=== PATIENT | female | born 1975 | race African-American/Black ===

== ENCOUNTER 2017-03-05 09:10 | Emergency (ER) | payer MEDICAID ==
[~2017-03-05] VITALS: Ht 162.6 cm; Wt 90.0 kg
[2017-03-05 09:12] VITALS: BP 154/78; PULSE 94; RESP 20; TEMP 97.9; O2SAT 100
[2017-03-05] MEDS ORDERED: SODIUM CHLOR 0.9% 1000 ML INJ 1,000 ML IV SCH (10:04)
[2017-03-05] MEDS ORDERED: SODIUM CHLORIDE 0.9% FLUSH 10 ML FLUSH IV FLUSH PRN (10:15)
[2017-03-05] MEDS ORDERED: ONDANSETRON HCL 4 MG/2 ML VIAL IVP ONE (10:15)
--- NOTE | 2017-03-05 10:23 | PD ---
HPI Chief Complaint: Abdominal Pain Time Seen by Provider: 09:40 Travel History International Travel<30 days: No Contact w/Intl Traveler<30days: No Traveled to known affect area: No History of Present Illness HPI 41-year-old woman presents emergency Department with nondescript lower abdominal pain and bloating. She states symptoms started over the past several days. They seem to be worse at night. She drinks soda one point it made it worse as well. Is no other clearly aggravating or alleviating factors. She otherwise has been feeling generally well and healthy. Appetite been a little bit down. No nausea vomiting. No change in bowel movements. No urinary symptoms. No vaginal discharge or vaginal bleeding. Only previous abdominal surgery was for removal of left ovary last year due to a large ovarian cyst. Last initial period was January 26. History Past Medical History Medical History: Denies Significant Hx LMP: January 26 Social History Alcohol Use: Yes (sometimes) Tobacco Use: No Allergies-Medications (Allergen,Severity, Reaction): Coded Allergies: No Known Allergies (Unverified , 03/05/17) Reported Meds & Prescriptions Reported Meds & Active Scripts Active No Active Prescriptions or Reported Medications Review of Systems Except as stated in HPI: all other systems reviewed are Neg Physical Exam Narrative GENERAL: Well-appearing 41-year-old woman, no acute distress. SKIN: Focused skin assessment warm/dry. HEAD: Atraumatic. Normocephalic. CARDIOVASCULAR: Regular rate and rhythm. No murmur appreciated. RESPIRATORY: No accessory muscle use. Clear to auscultation. Breath sounds equal bilaterally. GASTROINTESTINAL: Normal contour and appearance. Abdomen is soft. Minimal right sided tenderness, upper and lower. No rebound or guarding. Negative James's. MUSCULOSKELETAL: No obvious deformities. No clubbing. No cyanosis. No edema. NEUROLOGICAL: Awake and alert. No obvious cranial nerve deficits. Motor grossly within normal limits. Normal speech. PSYCHIATRIC: Appropriate mood and affect; insight and judgment normal. Data Data Last Documented VS Vital Signs Date Time Temp Pulse Resp B/P Pulse Ox O2 Delivery O2 Flow Rate FiO2 03/05/17 09:12 97.9 94 20 154/78 100 Room Air Orders Complete Blood Count With Diff (03/05/17 10:04) Comprehensive Metabolic Panel (03/05/17 10:04) Lipase (03/05/17 10:04) Urinalysis - C+S If Indicated (03/05/17 10:04) Iv Access Insert/Monitor (03/05/17 10:04) NPO (03/05/17 10:04) Ondansetron Inj (Zofran Inj) (03/05/17 10:15) Sodium Chlor 0.9% 1000 Ml Inj (Ns 1000 M (03/05/17 10:04) Sodium Chloride 0.9% Flush (Ns Flush) (03/05/17 10:15) Ed Urine Pregnancytest Poc (03/05/17 10:04) Ed Poc Ultrasound (03/05/17 10:04) Beta Hcg (Quant/Titer) (03/05/17 10:19) Ed Poc Ultrasound (03/05/17 ) Labs Laboratory Tests Test 03/05/17 03/05/17 10:15 10:25 Urine Color YELLOW Urine Turbidity HAZY Urine pH 5.5 Urine Specific [place] 1.017 Urine Protein NEG mg/dL Urine Glucose (UA) NEG mg/dL Urine Ketones NEG mg/dL Urine Occult Blood NEG Urine Nitrite NEG Urine Bilirubin NEG Urine Urobilinogen LESS THAN 2.0 MG/DL Urine Leukocyte Esterase TRACE Urine RBC 1 /hpf Urine WBC 5 /hpf Urine Squamous Epithelial 5 /hpf Cells Urine Bacteria OCC /hpf Urine Hyaline Casts 1 /lpf Urine Mucus FEW /lpf Microscopic Urinalysis Comment CULT NOT INDICATED White Blood Count 7.6 TH/MM3 Red Blood Count 4.88 MIL/MM3 Hemoglobin 12.7 GM/DL Hematocrit 38.9 % Mean Corpuscular Volume 79.7 FL Mean Corpuscular Hemoglobin 26.1 PG Mean Corpuscular Hemoglobin 32.7 % Concent Red Cell Distribution Width 15.6 % Platelet Count 349 TH/MM3 Mean Platelet Volume 8.8 FL Neutrophils (%) (Auto) 61.0 % Lymphocytes (%) (Auto) 29.3 % Monocytes (%) (Auto) 6.9 % Eosinophils (%) (Auto) 1.9 % Basophils (%) (Auto) 0.9 % Neutrophils # (Auto) 4.6 TH/MM3 Lymphocytes # (Auto) 2.2 TH/MM3 Monocytes # (Auto) 0.5 TH/MM3 Eosinophils # (Auto) 0.1 TH/MM3 Basophils # (Auto) 0.1 TH/MM3 CBC Comment DIFF FINAL Differential Comment Sodium Level 136 MEQ/L Potassium Level 4.3 MEQ/L Chloride Level 106 MEQ/L Carbon Dioxide Level 21.4 MEQ/L Anion Gap 9 MEQ/L Blood Urea Nitrogen 8 MG/DL Creatinine 0.74 MG/DL Estimat Glomerular Filtration 106 ML/MIN Rate Random Glucose 80 MG/DL Calcium Level 9.7 MG/DL Total Bilirubin 0.6 MG/DL Aspartate Amino Transf 26 U/L (AST/SGOT) Alanine Aminotransferase 27 U/L (ALT/SGPT) Alkaline Phosphatase 82 U/L Total Protein 8.5 GM/DL Albumin 3.9 GM/DL Lipase 177 U/L Human Chorionic Gonadotropin, 5890 MIU/ML Quant MDM Medical Decision Making Medical Screen Exam Complete: Yes Emergency Medical Condition: Yes Interpretation(s) LABS: CBC is unremarkable. CMP is generally unremarkable. HCG is 5890 Lipase is normal UA is unremarkable Differential Diagnosis Appendicitis, cholecystitis, , pancreatitis, colitis, gastritis, other Narrative Course Medical decision making INITIAL: 41-year-old woman presents to the emergency department with nonspecific abdominal pain, more mid, more on the right, without associated symptoms. She looks well. She is late on her menstrual cycle. Clinic or was actually positive. We'll check labs, quantitative hCG, UA, reassess. Point of care ultrasound was performed to evaluate the gallbladder. I don't see any gallstones, pericholecystic fluid, or gallbladder wall thickening. FINAL: Patient . Only mild symptoms. Pelvic ultrasound performed. Cannot confirm IUP. Discussed this with the patient. If she has any worsening pain, sexually follow-up in the emergency department for further evaluation for ectopic. As's, she has only mild and intermittent discomfort that is likely due to itself. Recommend outpatient follow-up. Procedures Procedure Narrative Point of care ultrasound: Focus transabdominal ultrasounds perform immediate the bedside to evaluate for possibility of cholecystitis. Gallbladder was identified. There is no gallstones, gallbladder wall thickening, or pericholecystic fluid. Common bile duct was not clearly identified. Point of care ultrasound: Focused abdominal ultrasounds performed by me at the bedside to evaluate for possible . Probable gestational sac was seen in the uterus but no definitive confirmation of IUP can be established given no yolk sac or pole was seen. Diagnosis Primary Impression: Additional Instructions: Follow-up with your primary doctor in the next 2-4 days. Return to the emergency department for any new or worsening symptoms. Scripts No Active Prescriptions or Reported Meds Disposition: 01 DISCHARGE HOME Condition: Stable Edouard Forrest MD Mar 05, 2017 10:23
[2017-03-05 10:46] LABS: AUTOMATED NEUTROPHIL # 4.6 TH/MM3 (1.8-7.7); BASOPHIL # 0.1 TH/MM3 (0-0.2); BASOPHIL % 0.9 % (0.0-2.0); EOSINOPHIL # 0.1 TH/MM3 (0-0.4); EOSINOPHIL % 1.9 % (0.0-4.0); HEMATOCRIT 38.9 % (35.0-46.0); HEMO FLAGS DIFF FINAL; LYMPH % 29.3 % (9.0-44.0); LYMPHOCYTE # 2.2 TH/MM3 (1.0-4.8); MEAN CELL VOLUME 79.7 FL (80.0-100.0); MEAN CORPUSCULAR HEMOGLOBIN 26.1 PG (27.0-34.0); MEAN CORPUSCULAR HGB CONC 32.7 % (32.0-36.0); MONO % 6.9 % (0.0-8.0); PLATELET COUNT 349 TH/MM3 (150-450); RED BLOOD COUNT 4.88 MIL/MM3 (4.00-5.30); RED CELL DISTRIBUTION WIDTH 15.6 % (11.6-17.2); WHITE BLOOD COUNT 7.6 TH/MM3 (4.0-11.0)
[2017-03-05 11:03] LABS: BACTERIA, URINE OCC /hpf; BLOOD, URINE NEG (NEG); COMMENT (UR) CULT NOT INDICATED; CULTURE IF INDICATED CULT NOT INDICATED; GLUCOSE,URINE NEG (NEG); HYALINE CAST, URINE 1 /lpf (RARE); KETONE, URINE NEG (NEG); MUCUS URINE FEW /lpf (OCC); NITRITE,URINE NEG (NEG); PH, URINE 5.5 (5.0-8.5); SQUAMOUS EPITHELIAL CELL URINE 5 /hpf (0-5); URINE COLOR YELLOW (YELLW/STRAW)
[2017-03-05 11:09] LABS: ALKALINE PHOSPHATASE 82 U/L (45-117); TOTAL BILIRUBIN ADULT 0.6 MG/DL (0.2-1.0)
[2017-03-05 11:24] LABS: BETA HCG QUANT 5890 MIU/ML (0-5)
[2017-03-05 11:38] LABS: ALT (GPT) 27 U/L (10-53); ANION GAP 9 MEQ/L (5-15); AST (GOT) 26 U/L (15-37); BICARBONATE 21.4 MEQ/L (21.0-32.0); BLOOD UREA NITROGEN 8 MG/DL (7-18); CHLORIDE 106 MEQ/L (98-107); GLOMERULAR FILTRATION RATE 106 ML/MIN (>89); SODIUM (NA) 136 MEQ/L (136-145)
[2017-03-05 11:39] LABS: POTASSIUM 4.3 MEQ/L (3.5-5.1)
[2017-03-05] MEDS ORDERED: DOCO200C PO (12:49)
== END 2017-03-05 12:56 | disposition home or self-care (01) ==
LOC: NEPD 09:10
DX: R10.9 Unspecified abdominal pain (principal); R14.0 Abdominal distension (gaseous); Z32.01 Encounter for pregnancy test, result positive; Z3A.00 Weeks of gestation of pregnancy not specified
CPT/HCPCS: 80053; 81001; 83690; 84702; 84703; 85025; 96374; 99284; J2405; J7030

== ENCOUNTER 2017-03-20 08:51 | Emergency (ER) | payer OTHER ==
[~2017-03-20] VITALS: Ht 167.6 cm; Wt 100.0 kg
[~2017-03-20 08:51] MED LIST: DOCO200C PO
[2017-03-20 08:52] VITALS: BP 153/89; PULSE 82; RESP 20; TEMP 97.9; O2SAT 100
[2017-03-20] MEDS ORDERED: PREN1TAB63 (09:06)
[2017-03-20] MEDS ORDERED: HYDRO.5%T TOPICAL (09:18)
[2017-03-20] MEDS ORDERED: PRENTAB81 PO (09:18)
--- NOTE | 2017-03-20 09:18 | PD ---
HPI Chief Complaint: Pain: Acute or Chronic Time Seen by Provider: 09:15 Travel History International Travel<30 days: No Contact w/Intl Traveler<30days: No Traveled to known affect area: No History of Present Illness HPI Patient is a 41-year-old female who is a partially 5 weeks gestational age presents with right lower extremity pain and swelling. Patient states that she noticed a lump just anterior and medial to the left knee. She states she's been treating this with vinegar. She states that this caused some skin irritation or skin to open up. She denies a history of stasis denies a history of blood clots. Denies any history of shortness of breath abdominal pain nausea vomiting diarrhea vaginal bleeding vaginal discharge loss of fluid. PFSH Past Medical History ?: LMP: 01/26/17 Past Surgical History Gynecologic Surgery: Yes (removed L ovary, cyst) Social History Alcohol Use: No ( ) Tobacco Use: No Substance Use: No Allergies-Medications (Allergen,Severity, Reaction): Coded Allergies: No Known Allergies (Unverified , 03/05/17) Reported Meds & Prescriptions Reported Meds & Active Scripts Active Hydrocortisone Topical (Hydrocortisone) 0.5% Cream 1 Applic TOPICAL BID PRN Apply to affected area(s) Pnv Folic Acid + Iron Mul 27-1 mg ( Vit W/ Ferrous Fumara) 1 Tab Tab 1 Tab PO DAILY Dha (Docosahexaenoic Acid) 200 Mg Cap 1 Tab PO DAILY 30 Days Review of Systems Except as stated in HPI: all other systems reviewed are Neg Physical Exam Narrative GENERAL: Well-nourished, well-developed patient. stress SKIN: Focused skin assessment warm/dry. HEAD: Normocephalic. EYES: No scleral icterus. No injection or drainage. NECK: Supple, trachea midline. No JVD or lymphadenopathy. CARDIOVASCULAR: Regular rate and rhythm without murmurs, gallops, or rubs. RESPIRATORY: Breath sounds equal bilaterally. No accessory muscle use. GASTROINTESTINAL: Abdomen soft, non-tender, nondistended. MUSCULOSKELETAL: No cyanosis, or edema. Right lower extremity: Patient has really minimal amount of swelling and a 2 x 2 centimeter area over the right medial tibia just distal to the knee. The compartment's are all soft. No cordlike structure. There is no swelling of the calf femur ankle or foot. There is no fluctuant area in the overlying skin is normal except for a quarter centimeter abrasion which is already scabbed. BACK: Nontender without obvious deformity. No CVA tenderness. Data Data Last Documented VS Vital Signs Date Time Temp Pulse Resp B/P Pulse Ox O2 Delivery O2 Flow Rate FiO2 03/20/17 08:52 97.9 82 20 153/89 100 Room Air MDM Medical Decision Making Medical Screen Exam Complete: Yes Emergency Medical Condition: Yes Differential Diagnosis Nonspecific swelling, bug bite, abscess less likely, DVT highly unlikely. Narrative Course Patient roomed in the emergency department, she has his nonspecific area of swelling over the right medial tibia. She has not reported a history of trauma though this could be consistent with a traumatic hematoma which is very small. I think the clinical likelihood of DVT is very unlikely. Discussed with the patient's symptom management and management recommend follow-up the primary care physician. We'll try hydrocortisone for her symptoms. Diagnosis Primary Impression: Leg swelling Med/Other Pt SpecificInfo: Prescription(s) given Scripts Hydrocortisone Topical 0.5% Cream1 Applic TOPICAL BID PRN (ITCHING) #30 GM Ref 0 Apply to affected area(s) Prov:Bill Keys MD 03/20/17 Vit W/ Ferrous Fumara (Pnv Folic Acid + Iron Mul 27-1 mg)1 Tab Tab1 Tab PO DAILY #30 Ref 9 Prov:Bill Keys MD 03/20/17 Disposition: 01 DISCHARGE HOME Condition: Stable Bill Keys MD Mar 20, 2017 09:18
== END 2017-03-20 09:43 | disposition home or self-care (01) ==
LOC: NEPD 08:51
DX: O99.89 Other specified diseases and conditions complicating pregnancy, childbirth and the puerperium (principal); R22.41 Localized swelling, mass and lump, right lower limb; M79.604 Pain in right leg; R23.8 Other skin changes; Z3A.01 Less than 8 weeks gestation of pregnancy
CPT/HCPCS: 99283

== ENCOUNTER 2017-04-02 19:55 | Emergency (ER) | payer OTHER ==
[~2017-04-02] VITALS: Ht 167.6 cm; Wt 100.0 kg
[~2017-04-02 19:55] MED LIST changes: +HYDRO.5%T TOPICAL; +PRENTAB81 PO
[2017-04-02 19:56] VITALS: BP 186/93; PULSE 81; RESP 16; TEMP 98.6; O2SAT 99
[2017-04-02] MEDS ORDERED: CETI10 PO (22:24)
--- NOTE | 2017-04-02 22:31 | PD ---
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 Patient is 3 para 1 AB 1. Last menstruation period January 26, 2017. Patient states that her blood type is possible B+. Patient started having vaginal spotting since yesterday. Patient started having low abdominal pain pelvic pain and low back pain since this evening. Patient denies any headache. Patient denies any chest pain or shortness of breath. Patient denies any dysuria or frequency. Patient denies any fever chills. On a scale of 1-10 the pain is a 9. Patient states that she was seen by local OB clinic and had blood tests done however has not had exam or ultrasound done. PFSH Past Medical History Medical History: Denies Significant Hx Tetanus Vaccination: Unknown Influenza Vaccination: No ?: Ovarian Cysts: Yes Past Surgical History Gynecologic Surgery: Yes (removed L ovary, cyst) Social History Alcohol Use: No ( ) Tobacco Use: No Substance Use: No Allergies-Medications (Allergen,Severity, Reaction): Coded Allergies: No Known Allergies (Unverified , 04/02/17) Reported Meds & Prescriptions Reported Meds & Active Scripts Active Pnv Folic Acid + Iron Mul 27-1 mg ( Vit W/ Ferrous Fumara) 1 Tab Tab 1 Tab PO DAILY Reported Cetirizine (Cetirizine HCl) 10 Mg Tab 10 Mg PO DAILY PRN Review of Systems General / Constitutional: No: Fever Eyes: No: Visual changes HENT: No: Headaches Cardiovascular: No: Chest Pain or Discomfort Respiratory: No: Shortness of Breath Gastrointestinal: Positive: Abdominal Pain Genitourinary: Positive: Pelvic Pain, Vaginal Bleeding, No: Dysuria Musculoskeletal: No: Pain Skin: No Rash Neurologic: No: Weakness Psychiatric: No: Depression Endocrine: No: Polydipsia Hematologic/Lymphatic: No: Easy Bruising Physical Exam Narrative GENERAL: Well-nourished, well-developed patient. SKIN: Focused skin assessment warm/dry. HEAD: Normocephalic. EYES: No scleral icterus. No injection or drainage. NECK: Supple, trachea midline. No JVD or lymphadenopathy. CARDIOVASCULAR: Regular rate and rhythm without murmurs, gallops, or rubs. RESPIRATORY: Breath sounds equal bilaterally. No accessory muscle use. GASTROINTESTINAL: Abdomen soft, non-tender, nondistended. MUSCULOSKELETAL: No cyanosis, or edema. BACK: Nontender without obvious deformity. No CVA tenderness. 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 No cervical motion tenderness. The cervix long thick and closed. Uterus is enlarged with moderate tenderness on palpation. No adnexal mass or tenderness. Data Data Last Documented VS Vital Signs Date Time Temp Pulse Resp B/P Pulse Ox O2 Delivery O2 Flow Rate FiO2 04/02/17 23:00 70 18 122/75 98 Room Air 04/02/17 19:56 98.6 Orders Beta Hcg (Quant/Titer) (04/02/17 22:14) Complete Blood Count With Diff (04/02/17 22:14) Basic Metabolic Panel (Bmp) (04/02/17 22:14) Complete Rh (04/02/17 22:14) Us Pelvis (Ques Pr/Ect)W Trans (04/02/17 ) Urinalysis - C+S If Indicated (04/02/17 22:14) Iv Access Insert/Monitor (04/02/17 22:14) Labs Laboratory Tests Test 04/02/17 04/02/17 22:30 23:37 White Blood Count 8.8 TH/MM3 Red Blood Count 4.81 MIL/MM3 Hemoglobin 12.9 GM/DL Hematocrit 39.5 % Mean Corpuscular Volume 82.2 FL Mean Corpuscular Hemoglobin 26.8 PG Mean Corpuscular Hemoglobin 32.5 % Concent Red Cell Distribution Width 17.0 % Platelet Count 324 TH/MM3 Mean Platelet Volume 8.7 FL Neutrophils (%) (Auto) 53.7 % Lymphocytes (%) (Auto) 33.6 % Monocytes (%) (Auto) 7.8 % Eosinophils (%) (Auto) 3.9 % Basophils (%) (Auto) 1.0 % Neutrophils # (Auto) 4.7 TH/MM3 Lymphocytes # (Auto) 3.0 TH/MM3 Monocytes # (Auto) 0.7 TH/MM3 Eosinophils # (Auto) 0.3 TH/MM3 Basophils # (Auto) 0.1 TH/MM3 CBC Comment DIFF FINAL Differential Comment Sodium Level 138 MEQ/L Potassium Level 4.3 MEQ/L Chloride Level 106 MEQ/L Carbon Dioxide Level 25.0 MEQ/L Anion Gap 7 MEQ/L Blood Urea Nitrogen 14 MG/DL Creatinine 0.71 MG/DL Estimat Glomerular Filtration 111 ML/MIN Rate Random Glucose 88 MG/DL Calcium Level 9.6 MG/DL Human Chorionic Gonadotropin, 3889 MIU/ML Quant Blood Type B POSITIVE Rho(D) Type POSITIVE Urine Color YELLOW Urine Turbidity HAZY Urine pH 5.5 Urine Specific [place] 1.017 Urine Protein NEG mg/dL Urine Glucose (UA) NEG mg/dL Urine Ketones NEG mg/dL Urine Occult Blood LARGE Urine Nitrite NEG Urine Bilirubin NEG Urine Urobilinogen LESS THAN 2.0 MG/DL Urine Leukocyte Esterase TRACE Urine RBC 2 /hpf Urine WBC 3 /hpf Urine Squamous Epithelial 2 /hpf Cells Urine Amorphous Sediment RARE Urine Bacteria RARE /hpf Urine Mucus FEW /lpf Microscopic Urinalysis Comment CULT NOT INDICATED MDM Medical Decision Making Medical Screen Exam Complete: Yes Emergency Medical Condition: Yes Interpretation(s) 12:03 AM. CBC within normal limit. BMP within normal limit. Beta hCG 3889. UA negative. 12:27 AM. Patient's blood type B+. Last Impressions Pelvis Ultrasound 04/02/17 0000 Signed Impressions: Service Date/Time: March 23:22 - CONCLUSION: 1. No gestational sac is demonstrated. There is complex hyperechoic material in the endometrial cavity. This is suspicious of retained products of conception following most likely a spontaneous given patient's history of bleeding.. Recommend serial beta hCGs to confirm a decreasing beta.. 2. Nonspecific 1 cm cystic structure within the right mid uterus. Chau Boswell MD Differential Diagnosis Differential diagnosis including threatened AB, incomplete AB, completed AB, ectopic . Narrative Course 41-year-old female with vaginal bleeding, abdominal pain and low back pain. Diagnosis Primary Impression: Incomplete Patient Instructions: General Instructions Additional Instructions: Tylenol or ibuprofen for pain. Follow-up with local physician for repeat beta hCG in 3 days. Return if increasing abdominal pelvic pain, excessive bleeding. Med/Other Pt SpecificInfo: No Meds Exist/No RX given Disposition: 01 DISCHARGE HOME Condition: Stable Patrice Rodriguez MD April 02, 2017 22:31
[2017-04-02 22:39] LABS: AUTOMATED NEUTROPHIL # 4.7 TH/MM3 (1.8-7.7); BASOPHIL # 0.1 TH/MM3 (0-0.2); EOSINOPHIL # 0.3 TH/MM3 (0-0.4); EOSINOPHIL % 3.9 % (0.0-4.0); HEMATOCRIT 39.5 % (35.0-46.0); HEMO FLAGS DIFF FINAL; LYMPH % 33.6 % (9.0-44.0); MEAN CELL VOLUME 82.2 FL (80.0-100.0); MEAN CORPUSCULAR HEMOGLOBIN 26.8 PG (27.0-34.0); MEAN CORPUSCULAR HGB CONC 32.5 % (32.0-36.0); MONO % 7.8 % (0.0-8.0); NEUT % 53.7 % (16.0-70.0); PLATELET COUNT 324 TH/MM3 (150-450); RED BLOOD COUNT 4.81 MIL/MM3 (4.00-5.30); WHITE BLOOD COUNT 8.8 TH/MM3 (4.0-11.0)
[2017-04-02 22:59] LABS: POTASSIUM 4.3 MEQ/L (3.5-5.1)
[2017-04-02 23:00] VITALS: BP 122/75; PULSE 70; RESP 18; O2SAT 98
[2017-04-03 00:02] LABS: BACTERIA, URINE RARE /hpf; BLOOD, URINE LARGE (NEG); GLUCOSE,URINE NEG (NEG); KETONE, URINE NEG (NEG); MUCUS URINE FEW /lpf (OCC); NITRITE,URINE NEG (NEG); PH, URINE 5.5 (5.0-8.5); SQUAMOUS EPITHELIAL CELL URINE 2 /hpf (0-5); URINE COLOR YELLOW (YELLW/STRAW)
[2017-04-03 00:03] LABS: COMMENT (UR) CULT NOT INDICATED; CULTURE IF INDICATED CULT NOT INDICATED
--- NOTE | 2017-04-03 00:17 | RADRPT ---
EXAM DATE/TIME: 04/02/2017 23:22 [facility] COMPARISON: No previous studies available for comparison. INDICATIONS : Pelvic pain and bleeding. LAB(S): Beta-hC,889 MEDICAL HISTORY : . Ovarian cysts. SURGICAL HISTORY : Left oophorectomy. ENCOUNTER: Initial ACUITY: 1 day PAIN SCORE: 10/10 LOCATION: Bilateral pelvis MEASUREMENTS: UTERUS: 12.0 x 5.9 x 6.7 cm ENDOMETRIAL STRIPE: >20 mm RIGHT OVARY: 2.7 x 3.6 x 2.2 cm LEFT OVARY: s/p oophorectomy CROWN RUMP LENGTH: Nonvisualized = WKS DAYS FHR: Nonvisualized BPM FINDINGS: UTERUS: The uterus is within normal limits for size. No gestational sac is demonstrated. There is thickening of the endometrial lining appears to be hyperechoic complex material within the endometrial cavity me asuring 2.4 x 3.6 x 2.0 cm. There is a nonspecific cystic structure in the right mid uterus measuring 1 cm. There is a 6 mm nabothian cyst in the cervix. RIGHT OVARY: Ovary contains no mass or significant cystic lesion. LEFT OVARY: Surgically removed MISCELLANEOUS: No free fluid. CONCLUSION: 1. No gestational sac is demonstrated. There is complex hyperechoic material in the endometrial cavit y. This is suspicious of retained products of conception following most likely a spontaneous given patient's history of bleeding.. Recommend serial beta hCGs to confirm a decreasing beta.. 2. Nonspecific 1 cm cystic structure within the right mid uterus. Chau Boswell MD on April 03, 2017 at 0:10 Board Certified Radiologist. This report was verified electronically.
[2017-04-04] MEDS ORDERED: METH-703 PO (04:54)
[2017-04-04] MEDS ORDERED: HYDR-3533 PO (04:54)
== END 2017-04-03 01:20 | disposition home or self-care (01) ==
LOC: NEPC 19:55
DX: O03.4 Incomplete spontaneous abortion without complication (principal); Z3A.00 Weeks of gestation of pregnancy not specified
CPT/HCPCS: 76700; 76817; 80048; 81001; 84702; 85025; 86901

== ENCOUNTER 2017-04-04 03:12 | Emergency (ER) | payer OTHER ==
[~2017-04-04] VITALS: Ht 167.6 cm; Wt 100.0 kg
[~2017-04-04 03:12] MED LIST changes: +CETI10 PO; -DOCO200C PO; -HYDRO.5%T TOPICAL
[2017-04-04 03:15] VITALS: BP 147/86; PULSE 87; RESP 22; TEMP 98; O2SAT 100
--- NOTE | 2017-04-04 03:35 | PD ---
HPI Chief Complaint: Abdominal Pain Time Seen by Provider: 03:29 Travel History International Travel<30 days: No Contact w/Intl Traveler<30days: No Traveled to known affect area: No History of Present Illness HPI This is a 41-year-old female who was seen yesterday and diagnosed with incomplete , presents today with complaints of continued abdominal cramping with no passage of tissue. The patient denies any increased bleeding. She states that she's having more cramps and has not seen anything past from her vagina. Yesterday her beta-hCG was 3880. There are no other complaints time my examination. PFS Past Medical History Medical History: Denies Significant Hx ?: Unknown LMP: 01/26. Ovarian Cysts: Yes Past Surgical History Gynecologic Surgery: Yes (removed L ovary, cyst) Social History Alcohol Use: No ( ) Tobacco Use: No Substance Use: No Allergies-Medications (Allergen,Severity, Reaction): Coded Allergies: No Known Allergies (Unverified , 04/04/17) Reported Meds & Prescriptions Reported Meds & Active Scripts Active Lortab (Hydrocodone-Acetaminophen) 5-325 Mg Tab 1 Tab PO Q4H PRN Methergine (Methylergonovine Maleate) 0.2 Mg Tab 0.2 Mg PO TID Pnv Folic Acid + Iron Mul 27-1 mg ( Vit W/ Ferrous Fumara) 1 Tab Tab 1 Tab PO DAILY Reported Cetirizine (Cetirizine HCl) 10 Mg Tab 10 Mg PO DAILY PRN Review of Systems Except as stated in HPI: all other systems reviewed are Neg HENT: No: Headaches, Lightheadedness Cardiovascular: No: Chest Pain or Discomfort, Palpitations Respiratory: No: Cough, Shortness of Breath Gastrointestinal: Positive: Abdominal Pain (crampy pelvic pain), No: Nausea, Vomiting Genitourinary: Positive: Pelvic Pain (crampy), Vaginal Bleeding (minimal), Other (no passage of tissue from the vagina) Musculoskeletal: No: Weakness, Pain Neurologic: No: Weakness, Dizziness Physical Exam Narrative GENERAL: Well-nourished, well-developed patient. SKIN: Focused skin assessment warm/dry. HEAD: Normocephalic/atraumatic. EYES: No scleral icterus. No injection or drainage. NECK: Supple, trachea midline. No JVD or lymphadenopathy. GASTROINTESTINAL: Abdomen soft, nondistended. She has subjective pelvic cramping. There is no rebound or guarding. MUSCULOSKELETAL: No cyanosis, or edema. BACK: Nontender without obvious deformity. NEUROLOGICAL: Awake and alert. Cranial nerves II through XII intact. Motor grossly within normal limits. Five out of 5 muscle strength in all muscle groups. Normal speech. Data Data Last Documented VS Vital Signs Date Time Temp Pulse Resp B/P Pulse Ox O2 Delivery O2 Flow Rate FiO2 04/04/17 04:00 76 18 114/62 99 04/04/17 03:15 98.0 Room Air Orders Complete Blood Count With Diff (04/04/17 03:30) Beta Hcg (Quant/Titer) (04/04/17 03:30) Labs Laboratory Tests Test 04/04/17 03:50 White Blood Count 10.3 TH/MM3 Red Blood Count 4.69 MIL/MM3 Hemoglobin 12.5 GM/DL Hematocrit 38.6 % Mean Corpuscular Volume 82.2 FL Mean Corpuscular Hemoglobin 26.7 PG Mean Corpuscular Hemoglobin 32.5 % Concent Red Cell Distribution Width 16.5 % Platelet Count 288 TH/MM3 Mean Platelet Volume 8.7 FL Neutrophils (%) (Auto) 64.7 % Lymphocytes (%) (Auto) 25.0 % Monocytes (%) (Auto) 7.0 % Eosinophils (%) (Auto) 2.5 % Basophils (%) (Auto) 0.8 % Neutrophils # (Auto) 6.6 TH/MM3 Lymphocytes # (Auto) 2.6 TH/MM3 Monocytes # (Auto) 0.7 TH/MM3 Eosinophils # (Auto) 0.3 TH/MM3 Basophils # (Auto) 0.1 TH/MM3 CBC Comment DIFF FINAL Differential Comment Human Chorionic Gonadotropin, 2320 MIU/ML Quant [facility] Medical Decision Making Medical Screen Exam Complete: Yes Emergency Medical Condition: Yes Differential Diagnosis Retained products versus complete AB versus missed AB Narrative Course 41-year-old female who has a incomplete AB, who was seen here yesterday. The patient was told that she would likely pass the products and she states she still having cramping however does not passed any tissue. Sound performed yesterday showed debris in the uterus with no pole. Beta hCG at that time was 3800. Today it's decreased at 2200. Her CBC shows a stable white count. We will start her on Methergine 0.2 mg by mouth 3 times a day 2 days. She also be given a prescription for Lortab. She is instructed to return if she does any severe bleeding that does not stop, dizziness, or any other reason the concerns her. She is instructed to return on Thursday for a repeat beta hCG. She does not need program as she is Rh+. Diagnosis Primary Impression: Incomplete Additional Instructions: Return on Thursday for repeat blood test. Med/Other Pt SpecificInfo: Prescription(s) given Scripts Hydrocodone-Acetaminophen (Lortab)5-325 Mg Tab1 Tab PO Q4H PRN (PAIN) #20 TAB Ref 0 Prov:Gary Perez MD 04/04/17 Methylergonovine (Methergine)0.2 Mg Tab0.2 Mg PO TID #6 TAB Ref 0 Prov:Gary Perez MD 04/04/17 Disposition: 01 DISCHARGE HOME Condition: Stable Gary Perez MD April 04, 2017 03:35
[2017-04-04 04:00] VITALS: BP 114/62; PULSE 76; RESP 18; O2SAT 99
[2017-04-04 04:05] LABS: AUTOMATED NEUTROPHIL # 6.6 TH/MM3 (1.8-7.7); BASOPHIL # 0.1 TH/MM3 (0-0.2); BASOPHIL % 0.8 % (0.0-2.0); EOSINOPHIL # 0.3 TH/MM3 (0-0.4); EOSINOPHIL % 2.5 % (0.0-4.0); HEMATOCRIT 38.6 % (35.0-46.0); HEMO FLAGS DIFF FINAL; LYMPHOCYTE # 2.6 TH/MM3 (1.0-4.8); MEAN CELL VOLUME 82.2 FL (80.0-100.0); MEAN CORPUSCULAR HEMOGLOBIN 26.7 PG (27.0-34.0); MEAN CORPUSCULAR HGB CONC 32.5 % (32.0-36.0); NEUT % 64.7 % (16.0-70.0); PLATELET COUNT 288 TH/MM3 (150-450); RED BLOOD COUNT 4.69 MIL/MM3 (4.00-5.30); RED CELL DISTRIBUTION WIDTH 16.5 % (11.6-17.2); WHITE BLOOD COUNT 10.3 TH/MM3 (4.0-11.0)
[2017-04-04 04:40] LABS: BETA HCG QUANT 2320 MIU/ML (0-5)
[2017-04-04] MEDS ORDERED: HYDR-3533 PO (04:54)
[2017-04-04] MEDS ORDERED: METH-703 PO (04:54)
== END 2017-04-04 05:15 | disposition home or self-care (01) ==
LOC: NEPE 03:12
DX: O03.4 Incomplete spontaneous abortion without complication (principal); R10.2 Pelvic and perineal pain
CPT/HCPCS: 84702; 85025; 99283

== ENCOUNTER 2018-03-09 16:52 | Inpatient (IN) | payer SELFPAY ==
[~2018-03-09] VITALS: Ht 157.5 cm; Wt 114.0 kg
[2018-03-09] VITALS (45 sets, daily range): BP systolic 128–166; BP diastolic 65–106; PULSE 94–116; RESP 18; TEMP 97.6–98.5
[~2018-03-09 16:52] MED LIST changes: +HYDR-3533 PO; +METH-703 PO
--- NOTE | 2018-03-09 17:21 | PD ---
HPI Chief Complaint Elevated outpt BP Date Seen: Mar 09, 2018 Time Seen: 17:19 Travel History International Travel<30 Days: No Contact w/Intl Traveler<30Days: No History of Present Illness HPI Patient is a 42 year old at 39 and 5/7 weeks, patient of Glory Rosas, who presents with elevated BP in office today of 160/100, 03/11/2018. She denies leakage of fluid, vaginal bleeding, and contractions. She feels baby moving regularly. She has mild CABRALES. She denies N/V/D/fever/sick contacts/SOB/ calf pain/dizziness/seeing spots. History Past Medical History Medical History: Denies Significant Hx Obstetric History Obstetric History Two miscarriages Full term Past Surgical History Surgical History: No Previous Surgery Family History Family History: Negative Social History Alcohol Use: No Tobacco Use: No Substance Abuse: No Allergies-Medications (Allergen,Severity, Reaction): Coded Allergies: No Known Allergies (Unverified , 04/04/17) Home Meds Active Scripts Hydrocodone-Acetaminophen (Lortab) 5-325 Mg Tab, 1 TAB PO Q4H Y for PAIN, #20 TAB 0 Refills Prov:Gary Perez MD 04/04/17 Methylergonovine (Methergine) 0.2 Mg Tab, 0.2 MG PO TID for Prevents Bleeding, # 6 TAB 0 Refills Prov:Gary Perez MD 04/04/17 Vit W/ Ferrous Fumara (Pnv Folic Acid + Iron Mul 27-1 mg) 1 Tab Tab, 1 TAB PO DAILY, #30 9 Refills Prov:Bill Keys MD 03/20/17 Reported Medications Cetirizine (Cetirizine) 10 Mg Tab, 10 MG PO DAILY Y for ALLERGIES, TAB 0 Refills 04/02/17 Review of Systems General / Constitutional: No: Fever, Chills Eyes: No: Diploplia, Blurred Vision HENT: No: Headaches, Vertigo Cardiovascular: No: Irregular Rhythm, Chest Pain or Discomfort Respiratory: No: Cough, Short of Breath Gastrointestinal: No: Nausea, Vomiting, Diarrhea, Abdominal Pain Genitourinary: No: Urgency, Dysuria Musculoskeletal: No: Limited ROM, Weakness, Edema Skin: No Dryness Neurologic: No: Weakness, Syncope Psychiatric: No: Anxiety, Depression Physical Exam Narrative GENERAL: Well-nourished, well-developed patient. SKIN: Warm and dry. HEAD: Normocephalic and atraumatic. EYES: No scleral icterus. No injection or drainage. ENT: No nasal drainage noted. Mucous membranes pink. Airway patent. NECK: Supple, trachea midline. No JVD. CARDIOVASCULAR: Regular rate and rhythm without murmurs, gallops, or rubs. RESPIRATORY: Breath sounds equal bilaterally. No accessory muscle use. ABDOMEN/GI: Abdomen soft, non-tender, bowel sounds present, no rebound, no guarding. Gravid uterus GENITOURINARY: deferred Uterine Contractions: absent FHT's: Category: 1 Baseline: 150 Reactive: 180 Variability: mod Decels: absent EXTREMITIES: No cyanosis or edema. BACK: Nontender without obvious deformity. No CVA tenderness. NEUROLOGICAL: Awake and alert. Motor and sensory grossly within normal limits. Five out of 5 muscle strength in all muscle groups. Normal speech. Data Data Vital Signs Reviewed: Yes Orders Orders Vital Signs (Adult) .ON ADMISSION (03/09/18 17:18) ^ Labor Status (03/09/18 17:18) Urinalysis - C+S If Indicated (03/09/18 17:18) ^ Non Stress Test (03/09/18 17:18) ^ Hydration (03/09/18 17:18) Cbc No Diff, Includes Plts (03/09/18 17:18) Comprehensive Metabolic Panel (03/09/18 17:18) Uric Acid (03/09/18 17:18) Protein Creat Ratio, Random Ur (03/09/18 17:18) MDM Narrative Course / MDM BP 166/105 on arrival. PE benign. Given term will admit for IOL. Intrauterine : Category 1 tracing Expect vaginal delivery Cervix to be assess Intact membranes Will obtain CBC, T&S, UA, UDS per protocol Monitor heart tones Routine care GBS to be assessed Hypertension in Blood pressures elevated to 160/100s Rule out preeclampsia CBC, CMP, urinalysis, uric acid pending, urine protein/creatinine Procardia 20 mg by mouth Start magnesium if indicated DW Dr. Nubia Macias,Tracey Winters MD R2 Mar 09, 2018 17:21
[2018-03-09] MEDS ORDERED: LACTATED RINGER'S 1000 ML INJ 1,000 ML IV PRN (17:34)
[2018-03-09] MEDS: LACTATED RINGER'S 1000 ML INJ 1,000 ML IV SCH ×2 (17:34→20:41)
[2018-03-09] MEDS ORDERED: LIDOCAINE HCL 1% 50 ML VIAL I-DERMAL PRN (17:45)
[2018-03-09] MEDS ORDERED: LIDOCAINE HCL 1% 50 ML VIAL INFIL PRN (17:45)
[2018-03-09] MEDS ORDERED: SODIUM CHLORID 0.9% 500 ML INJ 500 ML IV PRN (17:45)
[2018-03-09] MEDS: OXYTOCIN 30 UNITS-500ML PREMIX 500 ML IV ONE (17:45)
[2018-03-09] MEDS ORDERED: CITRIC ACID-SODIUM CITRATE LIQ 30 ML UDC PO SCH (17:45)
[2018-03-09] MEDS ORDERED: MINERAL OIL 10 ML VIAL TOPICAL PRN (17:45)
[2018-03-09] MEDS ORDERED: ONDANSETRON HCL 4 MG/2 ML VIAL IV PUSH PRN (17:45)
[2018-03-09] MEDS ORDERED: SODIUM CHLOR 0.9% 1000 ML INJ 1,000 ML IV PRN (17:54)
[2018-03-09 18:44] LABS: HEMATOCRIT 35.6 % (35.0-46.0); HEMOGLOBIN 11.6 GM/DL (11.6-15.3); MEAN CELL VOLUME 78.6 FL (80.0-100.0); MEAN CORPUSCULAR HEMOGLOBIN 25.7 PG (27.0-34.0); MEAN CORPUSCULAR HGB CONC 32.8 % (32.0-36.0); MEAN PLATELET VOLUME 9.5 FL (7.0-11.0); PLATELET COUNT 308 TH/MM3 (150-450); RED BLOOD COUNT 4.52 MIL/MM3 (4.00-5.30); RED CELL DISTRIBUTION WIDTH 16.4 % (11.6-17.2); WHITE BLOOD COUNT 8.3 TH/MM3 (4.0-11.0)
[2018-03-09] MEDS ORDERED: DINOPROSTONE 10 MG VAG INSERT VAGINAL ONE (18:45)
[2018-03-09 19:06] LABS: ALBUMIN 2.9 GM/DL (3.4-5.0); AST (GOT) 16 U/L (15-37); BICARBONATE 23.1 MEQ/L (21.0-32.0); BLOOD UREA NITROGEN 5 MG/DL (7-18); CALCIUM 9.8 MG/DL (8.5-10.1); CHLORIDE 108 MEQ/L (98-107); GLOMERULAR FILTRATION RATE 134 ML/MIN (>89); GLUCOSE,RANDOM 72 MG/DL (74-106); SODIUM (NA) 140 MEQ/L (136-145)
[2018-03-09 19:07] LABS: ALT (GPT) 16 U/L (10-53)
[2018-03-09 19:09] LABS: ALKALINE PHOSPHATASE 232 U/L (45-117); TOTAL BILIRUBIN ADULT 0.5 MG/DL (0.2-1.0)
[2018-03-09 19:24] LABS: BACTERIA, URINE OCC /hpf; BILIRUBIN, URINE NEG (NEG); BLOOD, URINE NEG (NEG); GLUCOSE,URINE NEG (NEG); KETONE, URINE NEG (NEG); MUCUS URINE FEW /lpf (OCC); NITRITE,URINE NEG (NEG); PH, URINE 6.5 (5.0-8.5); SQUAMOUS EPITHELIAL CELL URINE 31 /hpf (0-5); URINE COLOR YELLOW (YELLW/STRAW); URINE LEUKOCYTE ESTERASE LARGE (NEG)
[2018-03-09] MEDS ORDERED: CALCIUM GLUCONATE 10% 1 GM/10 ML VIAL IV PUSH PRN (19:30)
[2018-03-09] MEDS ORDERED: MAGNESIUM SULFATE 4 GM PREMIX 100 ML IV ONE (19:30)
[2018-03-09] MEDS ORDERED: LABETALOL HCL 100 MG/20 ML VIAL IV PUSH PRN (19:30)
[2018-03-09] MEDS ORDERED: SODIUM CHLORIDE 0.9% FLUSH 10 ML FLUSH IV FLUSH PRN (19:30)
--- NOTE | 2018-03-09 19:37 | HHI.HP ---
History & Physical H&P HPI Chief Complaint Elevated outpt BP Date Seen: Mar 09, 2018 Time Seen: 17:19 Travel History International Travel<30 Days: No Contact w/Intl Traveler<30Days: No History of Present Illness HPI Patient is a 42 year old at 39 and 5/7 weeks, patient of Glory Rosas, who presents with elevated BP in office today of 160/100, 03/11/2018. She denies leakage of fluid, vaginal bleeding, and contractions. She feels baby moving regularly. She has mild CABRALES. She denies N/V/D/fever/sick contacts/SOB/ calf pain/dizziness/seeing spots. History (Limited) History Past Medical History Medical History: Denies Significant Hx Obstetric History Obstetric History Two miscarriages Full term Past Surgical History Surgical History: No Previous Surgery Family History Family History: Negative Social History Alcohol Use: No Tobacco Use: No Substance Abuse: No Allergies-Medications Allergies-Medications (Allergen,Severity, Reaction): Coded Allergies: No Known Allergies (Unverified , 04/04/17) Home Meds Active Scripts Hydrocodone-Acetaminophen (Lortab) 5-325 Mg Tab, 1 TAB PO Q4H Y for PAIN, #20 TAB 0 Refills Prov:Gary ePrez MD 04/04/17 Methylergonovine (Methergine) 0.2 Mg Tab, 0.2 MG PO TID for Prevents Bleeding, # 6 TAB 0 Refills Prov:Gary Perez MD 04/04/17 Vit W/ Ferrous Fumara (Pnv Folic Acid + Iron Mul 27-1 mg) 1 Tab Tab, 1 TAB PO DAILY, #30 9 Refills Prov:Bill Keys MD 03/20/17 Reported Medications Cetirizine (Cetirizine) 10 Mg Tab, 10 MG PO DAILY Y for ALLERGIES, TAB 0 Refills 04/02/17 ROS Review of Systems General / Constitutional: No: Fever, Chills Eyes: No: Diploplia, Blurred Vision HENT: No: Headaches, Vertigo Cardiovascular: No: Irregular Rhythm, Chest Pain or Discomfort Respiratory: No: Cough, Short of Breath Gastrointestinal: No: Nausea, Vomiting, Diarrhea, Abdominal Pain Genitourinary: No: Urgency, Dysuria Musculoskeletal: No: Limited ROM, Weakness, Edema Skin: No Dryness Neurologic: No: Weakness, Syncope Psychiatric: No: Anxiety, Depression Physical Exam Physical Exam Narrative GENERAL: Well-nourished, well-developed patient. SKIN: Warm and dry. HEAD: Normocephalic and atraumatic. EYES: No scleral icterus. No injection or drainage. ENT: No nasal drainage noted. Mucous membranes pink. Airway patent. NECK: Supple, trachea midline. No JVD. CARDIOVASCULAR: Regular rate and rhythm without murmurs, gallops, or rubs. RESPIRATORY: Breath sounds equal bilaterally. No accessory muscle use. ABDOMEN/GI: Abdomen soft, non-tender, bowel sounds present, no rebound, no guarding. Gravid uterus GENITOURINARY: deferred Uterine Contractions: absent FHT's: Category: 1 Baseline: 150 Reactive: 180 Variability: mod Decels: absent EXTREMITIES: No cyanosis or edema. BACK: Nontender without obvious deformity. No CVA tenderness. NEUROLOGICAL: Awake and alert. Motor and sensory grossly within normal limits. Five out of 5 muscle strength in all muscle groups. Normal speech. Data Data Data Vital Signs Reviewed: Yes Orders Orders Vital Signs (Adult) .ON ADMISSION (03/09/18 17:18) ^ Labor Status (03/09/18 17:18) Urinalysis - C+S If Indicated (03/09/18 17:18) ^ Non Stress Test (03/09/18 17:18) ^ Hydration (03/09/18 17:18) Cbc No Diff, Includes Plts (03/09/18 17:18) Comprehensive Metabolic Panel (03/09/18 17:18) Uric Acid (03/09/18 17:18) Protein Creat Ratio, Random Ur (03/09/18 17:18) [facility] Narrative Course / [facility] BP 166/105 on arrival. PE benign. Given term will admit for IOL. Intrauterine : Category 1 tracing Expect vaginal delivery Cervix to be assess Intact membranes Will obtain CBC, T&S, UA, UDS per protocol Monitor heart tones Routine care GBS to be assessed Hypertension in Blood pressures elevated to 160/100s Rule out preeclampsia CBC, CMP, urinalysis, uric acid pending, urine protein/creatinine Procardia 20 mg by mouth Start magnesium if indicated DW Dr. Delacruz pt. spot protein/cr ratio is elevated. pt. w/ preeclamp. will start magnesium sulfate and monitor closely. Nasir Delacruz Jr., MD Mar 09, 2018 19:37
[2018-03-09] MEDS: SODIUM CHLORIDE 0.9% FLUSH 10 ML FLUSH IV FLUSH SCH (21:00)
[2018-03-09] MEDS: MAGNESIUM SULFATE 40 GM PREMIX 1,000 ML IV SCH (21:20)
[2018-03-10] VITALS (43 sets, daily range): BP systolic 113–146; BP diastolic 59–90; PULSE 81–122; RESP 15–18; TEMP 97.6–97.9; O2SAT 97–99
[2018-03-10] MEDS: LACTATED RINGER'S 1000 ML INJ 1,000 ML IV SCH ×2 (01:34→04:07)
--- NOTE | 2018-03-10 02:59 | PD.LABORPN ---
Subjective Subjective pt. in bed. uncomfrotable w/ ctxs. pt. w/ cervidil. pt. w/ noted late decels. +FM, no lof/vb. Objective Vital Signs Vital Signs Date Time Temp Pulse Resp B/P (MAP) Pulse Ox O2 Delivery O2 Flow Rate FiO2 03/10/18 02:15 97.6 03/10/18 02:01 91 126/68 (87) 03/10/18 02:00 18 03/10/18 01:15 18 03/10/18 01:01 90 123/66 (85) 03/10/18 00:15 18 03/10/18 00:01 92 119/89 (99) 03/09/18 23:08 103 141/74 (96) 03/09/18 23:01 102 134/76 (95) 03/09/18 23:00 101 03/09/18 22:55 94 03/09/18 22:50 97 03/09/18 22:45 99 03/09/18 22:40 97 03/09/18 22:35 103 03/09/18 22:30 104 03/09/18 22:25 107 03/09/18 22:20 103 03/09/18 22:15 101 03/09/18 22:10 101 03/09/18 22:05 99 03/09/18 22:01 99 139/80 (99) 03/09/18 22:00 105 03/09/18 22:00 98.5 18 03/09/18 21:55 103 03/09/18 21:50 107 03/09/18 21:46 102 136/84 (101) 03/09/18 21:45 107 03/09/18 21:40 102 03/09/18 21:35 109 03/09/18 21:31 106 138/82 (100) 03/09/18 21:30 18 03/09/18 21:30 112 03/09/18 21:25 107 03/09/18 21:21 135/83 (100) 03/09/18 21:20 107 03/09/18 21:16 111 137/106 (116) 03/09/18 21:15 115 03/09/18 21:11 143/94 (110) 03/09/18 21:11 112 4/17/18 21:10 110 03/09/18 21:06 106 142/91 (108) 03/09/18 21:05 115 03/09/18 21:01 110 135/65 (88) 03/09/18 21:00 116 03/09/18 20:56 102 149/84 (105) 03/09/18 20:51 108 128/79 (95) 03/09/18 20:50 18 03/09/18 20:48 107 139/86 (103) 03/09/18 19:47 141/71 (94) 03/09/18 19:47 97.6 108 18 03/09/18 19:00 18 03/09/18 18:58 95 140/84 (102) Objective Pelvic Exam: Cervix: anterior Dilatation: 1 Effacement: 50 Uterine Contractions: irreg FHT's: Category: 3 Reactive: Variability: mod Decels: late Weeks Gestation: 39 Pt started active labor?: No Medical induction of labor?: Yes Artificial rupture of membrane: No Assessment/Plan Problem List: (1) Preeclampsia ICD Codes: O14.90 - Unspecified pre-eclampsia, unspecified trimester Plan: pt. w/ preeclampsia on mgso4. pt. for iol w/ cervidil 2/2 preeclampsia. pt. w/ nrfht. condition d/w pt. cd d/w pt. risks/benefits/alternatives d/w pt. all ? answered. pt. conssent to procedure. (2) Non-reassuring electronic monitoring tracing ICD Codes: O76 - Abnormality in heart rate and rhythm complicating labor and delivery (3) 39 weeks gestation of ICD Codes: Z3A.39 - 39 weeks gestation of Nasir Delacruz Jr., MD Mar 10, 2018 02:59
[2018-03-10] MEDS ORDERED: TERBUTALINE INJ 1 MG/ML AMP SQ PRN (03:00)
[2018-03-10] MEDS ORDERED: ACETAMINOPHEN 1000 MG/100 ML 100 ML IV ONE (03:09)
[2018-03-10] MEDS ORDERED: MORPHINE SULFATE PF 5 MG/10 ML VIAL ONE (03:09)
--- NOTE | 2018-03-10 06:59 | PD.OB.DELI ---
Procedure Note Section Procedure Pre Op Diagnosis: (1) Failed induction of labor (2) Preeclampsia (3) 39 weeks gestation of (4) Non-reassuring electronic monitoring tracing Post Op Diagnosis: (1) Failed induction of labor (2) Non-reassuring electronic monitoring tracing (3) 39 weeks gestation of (4) Preeclampsia Performed by Nasir Delacruz Procedure: Primary Low Transverse Sec Indication for delivery: Other Previous condition: Myomectomy Informed consent obtained: For procedure Confirmed correct: Patient, Time-out taken Anesthesia: Spinal Medication prior to procedure: Magnesium Sulfate Monitoring during procedure: Blood pressure monitoring, Pulse oximetry Urinary catheter: Inserted using sterile technique Sterile preparation: With 2% chlorexidine (Hibiclens) Position: Supine with wedge to left side Operative Features Skin Incision: Pfannenstiel Uterine Incision: Low transverse w/knife / blunt ext Membranes Ruptured: Artificially Presentation: Occiput anterior Delivery date: Mar 10, 2018 Delivery time: 05:41 Delivery of infant: Other Infant: Male One Minute : 8 Five Minute : 9 Weight: 4110 Status of : Viable Placenta delivered: Intact, Sent to pathology Medications: Antibiotics Estimated blood loss: 700cc Procedure tolerated: Well Maternal Complications: Other Maternal Condition: Guarded Condition: Stable Procedure in detail see dictated operative report Nasir Delacruz Jr., MD Mar 10, 2018 06:59
[2018-03-10] MEDS: SODIUM CHLORIDE 0.9% FLUSH 10 ML FLUSH IV FLUSH SCH (07:20)
[2018-03-10] MEDS ORDERED: MAGNESIUM SULFATE 40 GM PREMIX 1,000 ML IV SCH (07:23)
[2018-03-10] MEDS ORDERED: LACTATED RINGER'S 1000 ML INJ 1,000 ML IV SCH (07:23)
--- NOTE | 2018-03-10 07:23 | MP ---
cc: Nasir Shelby MD DATE OF OPERATION: 03/10/2018 PREOPERATIVE DIAGNOSIS: Intrauterine at 39 weeks, preeclampsia, nonreassuring heart rate tracing, history of prior myomectomy and failed induction of labor. POSTOPERATIVE DIAGNOSIS: Intrauterine at 39 weeks, preeclampsia, nonreassuring heart rate tracing, history of prior myomectomy and failed induction of labor. PROCEDURE: Low transverse delivery via Pfannenstiel skin incision. SURGEON: Nasir Delacruz MD. FERRYBOAT OPERATOR CABLE: Staff. ESTIMATED BLOOD LOSS: 700 mL. URINE OUTPUT: Clear urine throughout the procedure. FINDINGS: Viable male in cephalic presentation. 's were 8 at 1 minute and 9 at 5 minutes. Weight was 4110 grams, multiple large fibroid uterus that could not be exteriorized during the procedure. COMPLICATIONS: None. 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 At the time of presentation, the patient was with noted increased blood pressure and lab values. Spot protein creatinine showed the patient had preeclampsia. She was started on magnesium sulfate and had induction of labor. During her induction of labor during contractions, the patient was noted to have repetitive late decelerations. Induction of labor was stopped and the decision was made to proceed with a delivery. ANESTHESIA: Spinal anesthesia with Duramorph. PROCEDURE: The patient was taken to the operating room with IV fluids running. Spinal anesthesia with Duramorph was applied and found to be adequate. She was prepped and draped in the dorsal supine position with a leftward tilt. Pfannenstiel skin incision was performed through the old myomectomy scar, carried down to the underlying layer of fascia with the Bovie. The fascia was incised in the midline and the fascial incision was extended laterally sharply. Kaela clamps were used to grasp the superior aspect of the fascial incision and the underlying rectus muscles were dissected sharply. The parietal peritoneum was identified, entered bluntly and extended superiorly and inferiorly with good visualization of the bladder. The bladder blade was inserted and the lower uterine segment was incised in a transverse manner and extended bluntly. It was noted that the 's head was quite large and the uterine incision was extended with the bandage scissors bilaterally and the 's head and the rest of the was delivered without difficulty or trauma. The cord was then doubly clamped and cut. The was handed to the awaiting resuscitation team. Cord bloods were obtained. Placenta was then delivered without difficulty. The uterus was noted to be multi-fibroid and very large and could not be exteriorized. It was cleared of all clots and debris. The uterine incision was closed with a #1 Vicryl in a running fashion. A second #1 Vicryl was used to perform an imbricating layer. Multiple areas of bleeding were noted. These were made hemostatic with multiple [id number]. Nazia was placed across the uterine incision and the bladder flap was reapproximated with 2-0 plain gut suture in a running fashion. The uterine incision was noted to be hemostatic. The parietal peritoneum could not be reapproximated. The subfascial tissues were noted to be hemostatic and the rectus fascia was closed with an 0 PDS suture in a running fashion. The subcuticular tissues were noted to be hemostatic and secondary to the edges of the incision rolling, a 4-0 Vicryl was used in a subcuticular fashion to close the incision. Sponge, lap and needle counts were correct x 2. The patient received 2 grams of Ancef prior to the procedure. Transferred to PACU in stable condition. MD JAMEL Almonte Jr/KANDY , 07:05 AM , 07:22 AM
[2018-03-10] MEDS ORDERED: EPIDURAL-DIPHENHYDRAMINE HCL 50 MG/ML VIAL IV PUSH PRN (08:15)
[2018-03-10] MEDS ORDERED: EPIDURAL-NO SYSTEMIC NARCOTICS PRN (08:15)
[2018-03-10] MEDS ORDERED: EPIDURAL-NALOXONE HCL 0.4 MG/ML AMP IV PUSH PRN (08:15)
[2018-03-10] MEDS ORDERED: EPIDURAL-DO NOT ADMINISTER ANTICOAGULANTS PRN (08:15)
[2018-03-10] MEDS ORDERED: EPIDURAL-DIPHENHYDRAMINE HCL 50 MG CAP PO PRN (08:15)
[2018-03-10] MEDS: KETOROLAC TROMETHAMINE 30 MG/ML (IVP) VIAL IV PUSH PRN (08:54)
--- NOTE | 2018-03-10 11:15 | HHI.OB ---
Subjective Post Operative Day: 0 Remarks 43 y/o female who is POD# 1 s/p primary CS due to severe PreE and indication. Post-operative Care: -Continue routine care. -Percocet and Motrin PRN pain. -Encouraged OOB. Advised pelvic rest for 6 wks. Will need a f/u appt. in 1 wk for incision check and BP check. -Re: ctrl, she would like tubal ligation. -Anticipate discharge 2-3 days. - PIH: FOLLOW UP WITHIN ONE WEEK POST-DISCHARGE HTN in : -BP still elevated post-operatively -Asymptomatic -Continue magnesium 2mg/hr IV drip for 24 hr post- -Was not adherent to medications before or during -Requiring PRN labetalol today 20mg IV this morning, continue to give labetalol PRN today -Consider transition to HCTZ and losartan or other regimen tomorrow -Continue clear liquids S/P Section: Patient noted to have had myomectomy in the past, not noted in H&P given pt did not disclose Prostaglandins initiated during IOL given unknown history, discontinued shortly after disclosure CS indicated due to severe PreE and bradycardia DW Dr. Delacruz Objective Vitals/I&O Vital Signs Date Time Temp Pulse Resp B/P (MAP) Pulse Ox O2 Delivery O2 Flow Rate FiO2 03/10/18 10:55 17 03/10/18 10:01 106 119/78 (92) 03/10/18 09:32 16 03/10/18 09:01 92 137/81 (99) 03/10/18 08:45 17 03/10/18 08:42 91 137/68 (91) 03/10/18 08:00 97.8 03/10/18 08:00 85 16 127/71 (89) 97 03/10/18 07:45 83 17 129/72 (91) 99 03/10/18 07:30 84 16 120/66 (84) 98 03/10/18 07:20 97.6 03/10/18 07:20 90 16 03/10/18 07:16 122 122/64 (83) 03/10/18 06:50 97.6 86 18 03/10/18 06:50 113/59 (77) 03/10/18 05:00 97.8 03/10/18 04:59 108 18 128/83 (98) 18 04:00 97.9 100 128/72 (90) 18 04:00 18 18 03:01 108 146/90 (108) 18 02:15 97.6 18 02:01 91 126/68 (87) 03/10/18 02:00 18 03/10/18 01:15 18 03/10/18 01:01 90 123/66 (85) 03/10/18 00:15 18 03/10/18 00:01 92 119/89 (99) 03/09/18 23:08 103 141/74 (96) 03/09/18 23:01 102 134/76 (95) 03/09/18 23:00 101 18 22:55 94 18 22:50 97 18 22:45 99 18 22:40 97 18 22:35 103 18 22:30 104 18 22:25 107 18 22:20 103 18 22:15 101 18 22:10 101 18 22:05 99 18 22:01 99 139/80 (99) 03/09/18 22:00 105 18 22:00 98.5 18 18 21:55 103 18 21:50 107 18 21:46 102 136/84 (101) 18 21:45 107 18 21:40 102 18 21:35 109 18 21:31 106 138/82 (100) 18 21:30 18 18 21:30 112 03/09/18 21:25 107 03/09/18 21:21 135/83 (100) 18 21:20 107 18 21:16 111 137/106 (116) 18 21:15 115 17/18 21:11 143/94 (110) 18 21:11 112 18 21:10 110 18 21:06 106 142/91 (108) 03/09/18 21:05 115 03/09/18 21:01 110 135/65 (88) 03/09/18 21:00 116 03/09/18 20:56 102 149/84 (105) 03/09/18 20:51 108 128/79 (95) 03/09/18 20:50 18 03/09/18 20:48 107 139/86 (103) 03/09/18 19:47 141/71 (94) 03/09/18 19:47 97.6 108 18 03/09/18 19:00 18 03/09/18 18:58 95 140/84 (102) 03/09/18 17:46 95 153/90 (111) 03/09/18 17:31 94 146/87 (106) 03/09/18 17:15 101 166/105 (125) Result Diagram: 03/09/18 1725 03/09/18 1725 Objective Remarks GENERAL: Well-nourished, well-developed patient. CARDIOVASCULAR: Regular rate and rhythm without murmurs, gallops, or rubs. RESPIRATORY: Breath sounds equal bilaterally. No accessory muscle use. ABDOMEN/GI: Abdomen soft, non-tender, bowel sounds present. Incision: Clean, dry and intact. Fundus: Firm, non-tender at umbilicus. GENITOURINARY: Light to moderate bleeding. EXTREMITIES: No cyanosis or edema, non-tender, without signs of DVT. Medications and IVs Current Medications Medications (Trade) Dose Ordered Sig/Kathryn Route Start Time Stop Time Status Last Admin (Xylocaine 1% Inj (50 ml)) 0.1 ml UNSCH X1 PRN I-DERMAL 03/09/18 17:45 03/12/18 17:44 (Bicitra Liq) 30 ml PROCESSING SPEC PO 03/09/18 17:45 03/13/18 17:44 03/10/18 03:02 (Zofran Inj) 4 mg Q6H PRN IV PUSH 03/09/18 17:45 (Xylocaine 1% Inj (50 ml)) 10 ml UNSCH X1 PRN INFIL 03/09/18 17:45 03/11/18 17:44 (Muri-Lube Oil) 10 ml UNSCH PRN TOPICAL 03/09/18 17:45 (NS Flush) 2 ml UNSCH PRN IV FLUSH 03/09/18 19:30 (NS Flush) 2 ml BID IV FLUSH 03/09/18 21:00 Magnesium Sulfate 1,000 ml @ 50 mls/hr Q20H IV 03/09/18 19:29 03/09/18 21:20 (Trandate Inj) 20 mg NOW PRN IV PUSH 03/09/18 19:30 03/16/18 19:29 (Calcium Gluconate Inj) 1 gm UNSCH PRN IV PUSH 03/09/18 19:30 (Brethine Inj) 0.25 mg UNSCH X1 PRN SQ 03/10/18 03:00 03/11/18 02:59 Lactated Ringer's 1,000 ml @ 125 mls/hr Q8H IV 03/10/18 07:23 Magnesium Sulfate 1,000 ml @ 50 mls/hr Q20H IV 03/10/18 07:23 (Toradol Inj) 30 mg Q6H PRN IV PUSH 03/10/18 07:30 03/15/18 07:29 03/10/18 08:54 (Percocet 5-325 Mg) 1 tab Q4H PRN PO 03/10/18 07:30 (Percocet 5-325 Mg) 2 tab Q4H PRN PO 03/10/18 07:30 Miscellaneous Information NO SYSTEMIC NARCOTICS TO BE GIVEN FO... UNSCH PRN .XX 03/10/18 08:15 03/11/18 08:14 (Narcan Inj) 0.4 mg UNSCH PRN IV PUSH 03/10/18 08:15 03/11/18 08:14 (Benadryl Inj) 25 mg Q6H PRN IV PUSH 03/10/18 08:15 03/11/18 08:14 (Benadryl) 50 mg Q6H PRN PO 03/10/18 08:15 03/11/18 08:14 Miscellaneous Information ALL NURSING DEPARTMENTS UNSCH PRN .XX 03/10/18 08:15 03/11/18 08:14 Acetaminophen 100 ml @ 400 mls/hr Q8H IV 03/10/18 14:00 03/10/18 22:14 Assessment/Plan Problem List: (1) Preeclampsia ICD Codes: O14.90 - Unspecified pre-eclampsia, unspecified trimester (2) Non-reassuring electronic monitoring tracing ICD Codes: O76 - Abnormality in heart rate and rhythm complicating labor and delivery (3) 39 weeks gestation of ICD Codes: Z3A.39 - 39 weeks gestation of Assessment and Plan 42 y/o female who is POD# 1 s/p primary CS due to severe PreE not responsive to conservative therapy. Post-operative Care: -Continue routine care. -Percocet and Motrin PRN pain. -Encouraged OOB. Advised pelvic rest for 6 wks. Will need a f/u appt. in 1 wk for incision check and BP check. -Re: ctrl, she would like tubal ligation. -Anticipate discharge 2-3 days. - PIH: FOLLOW UP WITHIN ONE WEEK POST-DISCHARGE HTN in : -BP still elevated post-operatively -Asymptomatic -Continue magnesium 2mg/hr IV drip for 24 hr post- -Was not adherent to medications before or during -Continue to give labetalol PRN today, not requiring any post-operatively -Consider transition to PO regimen if indicated -Continue clear liquids S/P Section: Patient noted to have had myomectomy in the past, not noted in H&P given pt did not disclose Prostaglandins initiated during IOL given unknown history, discontinued shortly after disclosure CS indicated due to severe PreE and bradycardia ANNIKA Delacruz Discharge Planning Likely 2 days to home Tracey Macias MD R2 Mar 10, 2018 11:15
[2018-03-10] MEDS ORDERED: ePHEDrine/NS 25 MG/5 ML SYRINGE IV ONE (12:00)
[2018-03-10] MEDS ORDERED: OXYTOCIN 10 UNIT/ML AMP IV ONE (12:00)
[2018-03-10] MEDS ORDERED: ONDANSETRON HCL 4 MG/2 ML VIAL IV ONE (12:00)
[2018-03-10] MEDS ORDERED: PHENYLEPH/NS 1000 MCG/10 ML SYR IV ONE (12:00)
[2018-03-10] MEDS ORDERED: DEXAMETHASONE SOD PHOS 4 MG/ML VIAL IV ONE (12:00)
[2018-03-10] MEDS ORDERED: LACTATED RINGER'S 1000 ML INJ 1,000 ML IV ONE (12:00)
[2018-03-10 12:02] LABS: HEMATOCRIT 33.1 % (35.0-46.0); HEMOGLOBIN 10.7 GM/DL (11.6-15.3); MEAN CELL VOLUME 77.8 FL (80.0-100.0); MEAN CORPUSCULAR HEMOGLOBIN 25.2 PG (27.0-34.0); MEAN CORPUSCULAR HGB CONC 32.4 % (32.0-36.0); MEAN PLATELET VOLUME 8.7 FL (7.0-11.0); PLATELET COUNT 279 TH/MM3 (150-450); RED BLOOD COUNT 4.25 MIL/MM3 (4.00-5.30); RED CELL DISTRIBUTION WIDTH 16.2 % (11.6-17.2); WHITE BLOOD COUNT 13.5 TH/MM3 (4.0-11.0)
[2018-03-10 12:38] LABS: ALBUMIN 2.6 GM/DL (3.4-5.0); ALKALINE PHOSPHATASE 206 U/L (45-117); ALT (GPT) 14 U/L (10-53); AST (GOT) 15 U/L (15-37); BICARBONATE 22.8 MEQ/L (21.0-32.0); BLOOD UREA NITROGEN 3 MG/DL (7-18); CALCIUM 8.8 MG/DL (8.5-10.1); CHLORIDE 106 MEQ/L (98-107); CREATININE 0.56 MG/DL (0.50-1.00); GLOMERULAR FILTRATION RATE 145 ML/MIN (>89); GLUCOSE,RANDOM 114 MG/DL (74-106); SODIUM (NA) 138 MEQ/L (136-145); TOTAL BILIRUBIN ADULT 0.4 MG/DL (0.2-1.0); TOTAL PROTEIN 7.1 GM/DL (6.4-8.2)
[2018-03-10] MEDS: ACETAMINOPHEN 1000 MG/100 ML 100 ML IV SCH ×2 (14:28→22:00)
[2018-03-10] MEDS: MAGNESIUM SULFATE 40 GM PREMIX 1,000 ML IV SCH (15:29)
[2018-03-11] VITALS (10 sets, daily range): BP systolic 102–145; BP diastolic 51–74; PULSE 73–112; RESP 17–20; TEMP 98–98.8
[2018-03-11 05:56] LABS: HEMATOCRIT 27.2 % (35.0-46.0); MEAN CELL VOLUME 78.3 FL (80.0-100.0); MEAN CORPUSCULAR HEMOGLOBIN 25.8 PG (27.0-34.0); MEAN CORPUSCULAR HGB CONC 32.9 % (32.0-36.0); MEAN PLATELET VOLUME 8.6 FL (7.0-11.0); PLATELET COUNT 267 TH/MM3 (150-450); RED BLOOD COUNT 3.47 MIL/MM3 (4.00-5.30); RED CELL DISTRIBUTION WIDTH 16.5 % (11.6-17.2); WHITE BLOOD COUNT 10.5 TH/MM3 (4.0-11.0)
[2018-03-11] MEDS: KETOROLAC TROMETHAMINE 30 MG/ML (IVP) VIAL IV PUSH PRN ×3 (06:00→21:30)
[2018-03-11 06:22] LABS: ALBUMIN 2.3 GM/DL (3.4-5.0); ALKALINE PHOSPHATASE 168 U/L (45-117); ALT (GPT) 12 U/L (10-53); AST (GOT) 11 U/L (15-37); BLOOD UREA NITROGEN 3 MG/DL (7-18); CALCIUM 7.8 MG/DL (8.5-10.1); CHLORIDE 106 MEQ/L (98-107); CREATININE 0.48 MG/DL (0.50-1.00); GLOMERULAR FILTRATION RATE 173 ML/MIN (>89); GLUCOSE,RANDOM 87 MG/DL (74-106); SODIUM (NA) 138 MEQ/L (136-145); TOTAL BILIRUBIN ADULT 0.5 MG/DL (0.2-1.0); TOTAL PROTEIN 6.3 GM/DL (6.4-8.2)
--- NOTE | 2018-03-11 08:16 | HHI.OB ---
Subjective Post Operative Day: 1 Remarks Postop day 1 for nonreassuring heart rate tracing, and hypertension, AF VSS BP WNL Patient feels good something is up and out of tolerating her liquid diet Objective Vitals/I&O Vital Signs Date Time Temp Pulse Resp B/P (MAP) Pulse Ox O2 Delivery O2 Flow Rate FiO2 03/11/18 06:01 78 112/62 (79) 03/11/18 05:01 82 102/55 (71) 03/11/18 04:01 79 109/51 (70) 03/11/18 03:01 75 113/58 (76) 03/11/18 02:01 79 118/67 (84) 03/11/18 01:01 73 120/61 (80) 03/11/18 00:01 73 117/60 (79) 03/10/18 23:01 82 115/70 (85) 03/10/18 22:01 91 126/63 (84) 03/10/18 21:01 90 131/68 (89) 03/10/18 20:01 88 118/65 (82) 03/10/18 20:00 97.9 18 03/10/18 19:01 92 142/74 (96) 03/10/18 18:01 94 120/64 (82) 03/10/18 17:01 91 126/59 (81) 03/10/18 17:00 16 03/10/18 16:01 93 133/66 (88) 03/10/18 16:00 17 03/10/18 15:01 97 145/62 (89) 03/10/18 15:00 17 03/10/18 14:01 85 135/71 (92) 03/10/18 14:00 16 03/10/18 13:01 81 127/71 (89) 03/10/18 13:00 15 03/10/18 12:05 86 133/68 (89) 03/10/18 12:00 15 03/10/18 11:01 90 140/75 (96) 03/10/18 10:55 17 03/10/18 10:01 106 119/78 (92) 03/10/18 09:32 16 03/10/18 09:01 92 137/81 (99) 03/10/18 08:45 17 03/10/18 08:42 91 137/68 (91) Result Diagram: 03/11/1851603/11/18516 Objective Remarks GENERAL: Well-nourished, well-developed patient. CARDIOVASCULAR: Regular rate and rhythm without murmurs, gallops, or rubs. RESPIRATORY: Breath sounds equal bilaterally. No accessory muscle use. ABDOMEN/GI: Abdomen soft, non-tender, bowel sounds present. Incision: Clean, dry and intact. Fundus: Firm, non-tender at umbilicus. GENITOURINARY: Light to moderate bleeding. EXTREMITIES: No cyanosis or edema, non-tender, without signs of DVT. Medications and IVs Current Medications Medications (Trade) Dose Ordered Sig/Kathryn Route Start Time Stop Time Status Last Admin (Xylocaine 1% Inj (50 ml)) 0.1 ml UNSCH X1 PRN I-DERMAL 03/09/18 17:45 03/12/18 17:44 (Bicitra Liq) 30 ml [employer] MANAGER PO 03/09/18 17:45 03/13/18 17:44 03/10/18 03:02 (Zofran Inj) 4 mg Q6H PRN IV PUSH 03/09/18 17:45 (Xylocaine 1% Inj (50 ml)) 10 ml UNSCH X1 PRN INFIL 03/09/18 17:45 03/11/18 17:44 (Muri-Lube Oil) 10 ml UNSCH PRN TOPICAL 03/09/18 17:45 (NS Flush) 2 ml UNSCH PRN IV FLUSH 03/09/18 19:30 (NS Flush) 2 ml BID IV FLUSH 03/09/18 21:00 Magnesium Sulfate 1,000 ml @ 50 mls/hr Q20H IV 03/09/18 19:29 03/10/18 15:29 (Trandate Inj) 20 mg NOW PRN IV PUSH 03/09/18 19:30 03/16/18 19:29 (Calcium Gluconate Inj) 1 gm UNSCH PRN IV PUSH 03/09/18 19:30 Lactated Ringer's 1,000 ml @ 125 mls/hr Q8H IV 03/10/18 07:23 Magnesium Sulfate 1,000 ml @ 50 mls/hr Q20H IV 03/10/18 07:23 (Toradol Inj) 30 mg Q6H PRN IV PUSH 03/10/18 07:30 03/15/18 07:29 03/11/18 06:00 (Percocet 5-325 Mg) 1 tab Q4H PRN PO 03/10/18 07:30 (Percocet 5-325 Mg) 2 tab Q4H PRN PO 03/10/18 07:30 Miscellaneous Information NO SYSTEMIC NARCOTICS TO BE GIVEN FO... UNSCH PRN .XX 03/10/18 08:15 03/11/18 08:14 (Narcan Inj) 0.4 mg UNSCH PRN IV PUSH 03/10/18 08:15 03/11/18 08:14 (Benadryl Inj) 25 mg Q6H PRN IV PUSH 03/10/18 08:15 03/11/18 08:14 (Benadryl) 50 mg Q6H PRN PO 03/10/18 08:15 03/11/18 08:14 03/10/18 22:30 Miscellaneous Information ALL NURSING DEPARTMENTS UNSCH PRN .XX 03/10/18 08:15 03/11/18 08:14 Assessment/Plan Problem List: (1) Preeclampsia ICD Codes: O14.90 - Unspecified pre-eclampsia, unspecified trimester (2) Non-reassuring electronic monitoring tracing ICD Codes: O76 - Abnormality in heart rate and rhythm complicating labor and delivery (3) 39 weeks gestation of ICD Codes: Z3A.39 - 39 weeks gestation of Assessment and Plan 42 y/o female who is POD# 1 s/p primary CS due to severe PreE Post-operative Care: -Continue routine care. -Percocet and Motrin PRN pain. -Encouraged OOB. Advised pelvic rest for 6 wks. Will need a f/u appt. in 1 wk for incision check and BP check. -Re: ctrl, she would like tubal ligation. -Anticipate discharge 2-3 days. - PIH: FOLLOW UP WITHIN ONE WEEK POST-DISCHARGE HTN in : S/P Section: Patient noted to have had myomectomy in the past, not noted in H&P given pt did not disclose CS indicated due to severe PreE and bradycardia now doing well postop BP WNL , stopping Mag So4 transfer to floor Discharge Planning Likely 2 days to home Syed Gutiérrez II, MD Mar 11, 2018 08:16
[2018-03-11] MEDS: oxyCODONE/ACETAMINOPHEN 5 MG/325 MG TAB PO PRN ×2 (13:00→21:31)
[2018-03-11] MEDS: SODIUM CHLORIDE 0.9% FLUSH 10 ML FLUSH IV FLUSH SCH (21:31)
[2018-03-12] VITALS: BP 136/78; PULSE 67; RESP 18; TEMP 98
[2018-03-12] MEDS: oxyCODONE/ACETAMINOPHEN 5 MG/325 MG TAB PO PRN ×5 (01:26→19:55)
[2018-03-12 04:00] VITALS: BP 122/73; PULSE 71; RESP 18; TEMP 98.5
[2018-03-12 08:00] VITALS: BP 155/91; PULSE 122; RESP 20; TEMP 98.1
--- NOTE | 2018-03-12 10:10 | HHI.OB ---
Subjective Post Operative Day: 2 Remarks Postoperative day # 2, AFVSS overnight. Incision not draining. Decreased lochia. Denies dysuria. No breast tenderness. She is feeding the baby via breast. Appetite good. No nausea or vomiting. Patient has not yet had a bowel movement but passing flatus. Ambulating well. Denies calf pain or shortness of breath. Otherwise, she is doing well this morning and has no other concerns. Objective Vitals/I&O Vital Signs Date Time Temp Pulse Resp B/P (MAP) Pulse Ox O2 Delivery O2 Flow Rate FiO2 03/12/18 08:00 122 20 155/91 (112) 03/12/18 08:00 98.1 03/12/18 04:00 98.5 71 18 122/73 (89) 03/12/18 00:00 98.0 67 18 136/78 (97) 03/11/18 20:00 98.0 03/11/18 20:00 112 18 145/72 (96) 03/11/18 12:40 98.8 101 17 128/69 (88) Result Diagram: 03/11/1851603/11/18516 Objective Remarks GENERAL: Well-nourished, well-developed patient. CARDIOVASCULAR: Regular rate and rhythm without murmurs, gallops, or rubs. RESPIRATORY: Breath sounds equal bilaterally. No accessory muscle use. ABDOMEN/GI: Abdomen soft, non-tender, bowel sounds present. Incision: Clean, dry and intact. Fundus: Firm, non-tender at umbilicus. GENITOURINARY: Light to moderate bleeding. EXTREMITIES: No cyanosis or edema, non-tender, without signs of DVT. Medications and IVs Current Medications Medications (Trade) Dose Ordered Sig/Kathryn Route Start Time Stop Time Status Last Admin (Xylocaine 1% Inj (50 ml)) 0.1 ml UNSCH X1 PRN I-DERMAL 03/09/18 17:45 03/12/18 17:44 (Bicitra Liq) 30 ml CENTER [employer]ICAL SPECIALIST PO 03/09/18 17:45 03/13/18 17:44 03/10/18 03:02 (Zofran Inj) 4 mg Q6H PRN IV PUSH 03/09/18 17:45 (Muri-Lube Oil) 10 ml UNSCH PRN TOPICAL 03/09/18 17:45 (NS Flush) 2 ml UNSCH PRN IV FLUSH 03/09/18 19:30 (NS Flush) 2 ml BID IV FLUSH 03/09/18 21:00 03/11/18 21:31 Magnesium Sulfate 1,000 ml @ 50 mls/hr Q20H IV 03/09/18 19:29 03/10/18 15:29 (Trandate Inj) 20 mg NOW PRN IV PUSH 03/09/18 19:30 03/16/18 19:29 (Calcium Gluconate Inj) 1 gm UNSCH PRN IV PUSH 03/09/18 19:30 Lactated Ringer's 1,000 ml @ 125 mls/hr Q8H IV 03/10/18 07:23 Magnesium Sulfate 1,000 ml @ 50 mls/hr Q20H IV 03/10/18 07:23 (Percocet 5-325 Mg) 1 tab Q4H PRN PO 03/10/18 07:30 03/11/18 21:31 (Percocet 5-325 Mg) 2 tab Q4H PRN PO 03/10/18 07:30 03/12/18 05:42 (Motrin) 800 mg Q8H PRN PO 03/12/18 08:15 Assessment/Plan Problem List: (1) Preeclampsia ICD Codes: O14.90 - Unspecified pre-eclampsia, unspecified trimester (2) Non-reassuring electronic monitoring tracing ICD Codes: O76 - Abnormality in heart rate and rhythm complicating labor and delivery (3) 39 weeks gestation of ICD Codes: Z3A.39 - 39 weeks gestation of Assessment and Plan 42 y/o female who is POD# 2 s/p primary CS due to severe PreE. Post-operative Care: -Continue routine care. -Percocet and Motrin PRN pain. -Encouraged OOB. Advised pelvic rest for 6 wks. Will need a f/u appt. in 1 wk for incision check and BP check. -Re: ctrl, she would like tubal ligation. -Postop H&H stable 08/19 -Anticipate discharge 2-3 days. HTN in : -resolved post- -S/P Magnesium 24hr . -FOLLOW UP WITHIN ONE WEEK POST-DISCHARGE S/P Section: -Patient noted to have had myomectomy in the past, not noted in H&P given pt did not disclose. Disposition: patient wants to stay another day, anticipate d/c tomorrow. ANNIKA Delacruz Discharge Planning DC today or tomorrow to home Tracey Macias MD R2 Mar 12, 2018 10:10
--- NOTE | 2018-03-12 10:16 | HHI.DCPOC ---
Discharge Care Plan Diagnosis: (1) Status post primary low transverse section (2) Preeclampsia Report Symptoms to Your Doctor -Temperature above 100.5 degrees -Redness, of incision or excessive or foul smelling drainage -Unusual pain or calf pain -Increased vaginal bleeding -Painful or difficulty urinating -Feelings of extreme sadness or anxiety after 2 weeks Goals to Promote Your Health * To prevent worsening of your condition and complications * To maintain your health at the optimal level Directions to Meet Your Goals Take your medications as prescribed Follow your dietary instruction Follow activity as directed Ensure plenty of rest for recovery Drink fluids for hydration Keep your appointments as scheduled Take your immunizations and boosters as scheduled If your symptoms worsen call your PCP, if no PCP go to Urgent Care Center or Emergency Room Smoking is Dangerous to Your Health. Avoid second hand smoke Call the 24-hour crisis hotline for domestic abuse at Tracey Macias MD R2 Mar 12, 2018 10:16
[2018-03-12] MEDS: IBUPROFEN 800 MG TAB PO PRN ×2 (11:06→19:55)
[2018-03-12 20:00] VITALS: BP 166/85; PULSE 113; RESP 20; TEMP 98.5
[2018-03-12 23:43] VITALS: BP 124/77; PULSE 97; RESP 18; TEMP 98.2
[2018-03-13] MEDS: IBUPROFEN 800 MG TAB PO PRN ×2 (02:00→10:07)
[2018-03-13] MEDS: oxyCODONE/ACETAMINOPHEN 5 MG/325 MG TAB PO PRN ×3 (02:01→10:07)
[2018-03-13 04:00] VITALS: BP 141/78; PULSE 110; RESP 18; TEMP 98.4
[2018-03-13 08:34] VITALS: BP 148/86; PULSE 119; RESP 20; TEMP 97.9
--- NOTE | 2018-03-13 08:54 | HHI.OB ---
Subjective Post Operative Day: 3 Remarks Postoperative day # 3, AFVSS overnight. Incision not draining. Decreased lochia. Denies dysuria. No breast tenderness. She is feeding the baby via breast. Appetite good. No nausea or vomiting. Patient has not yet had a bowel movement but passing flatus. Ambulating well. Denies calf pain or shortness of breath. Otherwise, she is doing well this morning and has no other concerns. Objective Vitals/I&O Vital Signs Date Time Temp Pulse Resp B/P (MAP) Pulse Ox O2 Delivery O2 Flow Rate FiO2 03/13/18 04:00 98.4 110 18 141/78 (99) 03/12/18 23:43 98.2 03/12/18 23:43 97 18 124/77 (93) 03/12/18 20:00 98.5 113 20 166/85 (112) Result Diagram: 03/11/1851603/11/18516 Objective Remarks GENERAL: Well-nourished, well-developed patient. CARDIOVASCULAR: Regular rate and rhythm without murmurs, gallops, or rubs. RESPIRATORY: Breath sounds equal bilaterally. No accessory muscle use. ABDOMEN/GI: Abdomen soft, non-tender, bowel sounds present. Incision: Clean, dry and intact. Steri strips in place. No openings on skin. Fundus: Firm, non-tender at umbilicus. GENITOURINARY: Light to moderate bleeding. EXTREMITIES: No cyanosis or edema, non-tender, without signs of DVT. Medications and IVs Current Medications Medications (Trade) Dose Ordered Sig/Kathryn Route Start Time Stop Time Status Last Admin (Bicitra Liq) 30 ml ELEMENTARY EDUCATION TEACHER PO 03/09/18 17:45 03/13/18 17:44 03/10/18 03:02 (Zofran Inj) 4 mg Q6H PRN IV PUSH 03/09/18 17:45 (Muri-Lube Oil) 10 ml UNSCH PRN TOPICAL 03/09/18 17:45 (NS Flush) 2 ml UNSCH PRN IV FLUSH 03/09/18 19:30 (NS Flush) 2 ml BID IV FLUSH 03/09/18 21:00 03/11/18 21:31 Magnesium Sulfate 1,000 ml @ 50 mls/hr Q20H IV 03/09/18 19:29 03/10/18 15:29 (Trandate Inj) 20 mg NOW PRN IV PUSH 03/09/18 19:30 03/16/18 19:29 (Calcium Gluconate Inj) 1 gm UNSCH PRN IV PUSH 03/09/18 19:30 Lactated Ringer's 1,000 ml @ 125 mls/hr Q8H IV 03/10/18 07:23 Magnesium Sulfate 1,000 ml @ 50 mls/hr Q20H IV 03/10/18 07:23 (Percocet 5-325 Mg) 1 tab Q4H PRN PO 03/10/18 07:30 03/12/18 19:55 (Percocet 5-325 Mg) 2 tab Q4H PRN PO 03/10/18 07:30 03/13/18 05:50 (Motrin) 800 mg Q8H PRN PO 03/12/18 08:15 03/12/18 19:55 Assessment/Plan Problem List: (1) Preeclampsia ICD Codes: O14.90 - Unspecified pre-eclampsia, unspecified trimester Qualifiers: Qualified Codes: O14.93 - Unspecified pre-eclampsia, third trimester (2) Non-reassuring electronic monitoring tracing ICD Codes: O76 - Abnormality in heart rate and rhythm complicating labor and delivery (3) 39 weeks gestation of ICD Codes: Z3A.39 - 39 weeks gestation of Assessment and Plan 42 y/o female who is POD# 3 s/p primary CS due to severe PreE. Post-operative Care: -Continue routine care. -Percocet and Motrin PRN pain. -Encouraged OOB. Advised pelvic rest for 6 wks. Will need a f/u appt. in 1 wk for incision check and BP check. -Re: ctrl, she would like tubal ligation. -Postop H&H stable 08/19 -Anticipate discharge today. HTN in : -resolved post- -S/P Magnesium 24hr . -FOLLOW UP WITHIN ONE WEEK POST-DISCHARGE S/P Section: -Patient noted to have had myomectomy in the past, not noted in H&P given pt did not disclose. ANNIKA Brown Discharge Planning DC today Tracey Macias MD R2 Mar 13, 2018 08:54
[2018-03-13] MEDS ORDERED: OXYC1TAB63 PO (08:55)
== END 2018-03-13 12:15 | disposition home or self-care (01) | DRG 766 ==
LOC: HOBED 16:52 → H2EB 17:39 → H1EA 03-11 08:26
PROVIDERS: ADMIT Obstetrics & Gynecology; ATTEND Obstetrics & Gynecology
PROC: 3E0P7VZ Introduction of Hormone into Female Reproductive, Via Natural or Artificial Opening (ICD-10-PCS; 2018-03-09)
PROC: 3E0S3BZ Introduction of Anesthetic Agent into Epidural Space, Percutaneous Approach (ICD-10-PCS; 2018-03-09)
PROC: 10D00Z1 Extraction of Products of Conception, Low, Open Approach (ICD-10-PCS; principal; 2018-03-10)
DX: O14.14 Severe pre-eclampsia complicating childbirth (principal); O61.9 Failed induction of labor, unspecified; Z37.0 Single live birth; Z3A.39 39 weeks gestation of pregnancy; O76 Abnormality in fetal heart rate and rhythm complicating labor and delivery
CPT/HCPCS: 59025; 80053; 80307; 81001; 82570; 84156; 84550; 85027; 86900; 86901; 87086; 88307; G0481; J0131; J1100; J1885; J2274; J2370; J2405; J2590; J3010; J3475; J7120; Q0163